=== PATIENT | male | born 1975 | race Caucasian/White ===

== ENCOUNTER 2016-11-06 16:37 | Emergency (ER) | payer BC ==
[2016-11-06 16:44] VITALS: RESP 18
[2016-11-06] MEDS ORDERED: DEXAMETHASONE 4 MG/ML VIAL IVP ONE (17:13)
[2016-11-06] MEDS ORDERED: KETOROLAC 15 MG/1 ML SDV IVP/IM ONE (17:13)
[2016-11-06] MEDS ORDERED: METOCLOPRAMIDE 10 MG/2 ML VIAL IVP ONE (17:13)
--- NOTE | 2016-11-06 17:19 | EDPHY ---
H & P Stated Complaint: vertigo & h/a x 2 wks;had eval by PCP 11/02 dx'd w/migraine, needs work note Time Seen by Provider: 11/06/16 16:58 HPI/ROS: CHIEF COMPLAINT: Headache times 13 days HISTORY OF PRESENT ILLNESS: 41-year-old male with no prior history of chronic headaches at complaining of left-sided headache, generally continuous come for the past 13 days. It was not thunderclap. He describes dizziness, describes gait instability. Saw his primary care provider 4 days ago was prescribed amitriptyline and tizanidine which have not alleviated his symptoms. He has been ingesting ibuprofen with no relief in symptoms. He has positive nausea, positive photophobia. No history of head or neck manipulation or trauma. PRIMARY CARE PROVIDER: Dr Johnathan Chavarria, [facility], [place], [place] REVIEW OF SYSTEMS: A ten point review of systems was performed and is negative with the exception of the items mentioned in the HPI PAST MEDICAL & SURGICAL HISTORY: no history of chronic headaches. 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 Appears uncomfortable 2) HEAD: Normocephalic, atraumatic. No temporal tenderness. 3) HEENT: Pupils equal, round, reactive to light bilaterally. Sclera anicteric. No orbital bruit. 4) NECK: Full range of motion, no meningeal signs. No carotid bruit. No adenopathy. 5) LUNGS: Clear auscultation bilaterally, no wheezes, no rhonchi, no retractions. 6) HEART: Regular rate and rhythm, no murmur, no heave, no gallop. 7) ABDOMEN: No guarding, no rebound, no focal tenderness, negative McBurney's, negative Gómez's, negative Rovsing's, negative peritoneal sign, 8) MUSCULOSKELETAL: Moving all extremities, no focal areas of tenderness, no obvious trauma. No peripheral edema or discoloration. 9) BACK: No CVA tenderness, no midline vertebral tenderness, no fluctuance, no step-off, no obvious trauma, no visual or palpable abnormality. 10) SKIN: No rash, no petechiae. 11) Psychiatric: Patient is oriented X 3, there is no agitation. 12) NEURO: Awake, alert, and oriented to person, place and time. Answers questions appropriately. Cranial nerves 2 through to 12 intact. Abnormal tandem gait. Abnormal heel to zuñiga. DIFFERENTIAL DIAGNOSIS: In no particular order, including but not limited to subarachnoid hemorrhage, migraine headache, tension headache and infectious causes such as meningitis, pharyngitis and sinusitis. The patient understands that this diagnosis is provisional and can never be 100% accurate. Usual and customary warnings were given concerning the clinical impression and all the patient's questions were answered. The patient was instructed to return to the emergency department should her symptoms worsen or return, or develop any new symptoms, otherwise to followup as directed in discharge instructions. This is a partial list of diagnoses considered. These considerations are based on history, physical exam, past history and reassessment. - Personal History Current Tetanus Diphtheria and Acellular Pertussis (TDAP): Yes - Medical/Surgical History Other PMH: chronic migraines. past hx head injury (?concussions) - Social History Smoking Status: Current every day smoker Constitutional: Initial Vital Signs Heart Rate 75 11/06/16 16:38 Respiratory Rate 18 11/06/16 16:38 Blood Pressure 156/89 H 11/06/16 16:38 O2 Sat (%) 97 11/06/16 16:38 O2 Delivery Mode Room Air Allergies/Adverse Reactions: No Known Allergies Allergy (Unverified 11/06/16 17:17) Home Medications: Medication Instructions Recorded Amitriptyline HCl [Elavil 10 mg 10 mg PO TID 11/06/16 (*)] Citalopram [CeleXA] 20 mg PO 11/06/16 Tizandine 11/06/16 Medical Decision Making ED Course/Re-evaluation: 5:20 p.m.: Case discussed with Dr Alejandra in ER. Patient and have 13 days of intractable headache which is new in onset with no prior history of chronic headache and is noted to have cerebellar dysfunction on exam. Plan will be MRI , analgesia re-evaluation. 6:53 p.m.: Re-evaluation, he is feeling improvement after IV Toradol, Reglan, Decadron. I discussed with him his negative MRI. He would like to be discharged, he feels comfortable being discharged. He is able to ambulate without assistance. I recommend he follow up with his primary care provider tomorrow (Monday). In the meantime given usual customary neurologic precautions and instructions. - Data Points Laboratory Results: 11/06/16 17:21 POC Hgb 17.7 gm/dL H gm/dL (13.7-17.5) POC Hct 52 % H % (40-51) POC Sodium 141 mEq/L mEq/L (134-144) POC Potassium 5.5 mEq/L H mEq/L (3.3-5.0) POC Chloride 108 mEq/L mEq/L (97-110) POC BUN 23 mg/dL mg/dL (7-23) POC Creatinine 0.9 mg/dL mg/dL (0.7-1.3) POC Glucose 84 mg/dL mg/dL (70-100) Medications Given: Discontinued Medications Dexamethasone (Decadron Injection) 8 mg IVP EDNOW ONE Stop: 11/06/16 17:14 Last Admin: 11/06/16 17:28 Dose: 8 mg Ketorolac Tromethamine (Toradol) 15 mg IVP/IM EDNOW ONE Stop: 11/06/16 17:14 Last Admin: 11/06/16 17:27 Dose: 15 mg Metoclopramide HCl (Reglan Injection) 10 mg IVP EDNOW ONE Stop: 11/06/16 17:14 Last Admin: 11/06/16 17:28 Dose: 10 mg Point of Care Test Results: 11/06/16 17:21 POC Sodium 141 POC Potassium 5.5 H POC Chloride 108 POC BUN 23 POC Creatinine 0.9 POC Glucose 84 Departure - Departure Disposition: Home, Routine, Self-Care Clinical Impression: Headache Qualifiers: Headache type: other headache syndrome Qualified Code(s): G44.89 - Other headache syndrome Condition: Good Instructions: Migraine Headache (ED) Additional Instructions: PLEASE FOLLOW UP WITH YOUR DOCTOR WITHIN 24 HOURS TO BE RECHECKED. RETURN TO THE ED IMMEDIATELY IF YOUR HEADACHE WORSENS, IF YOU DEVELOP A FEVER, NECK PAIN OR NECK STIFFNESS, OR IF YOU BECOME CONFUSED OR ABNORMALLY DROWSY. Referrals: JOHNATHAN CHAVARRIA [Other] - 1 day without fail
[2016-11-06] MEDS ORDERED: DEXAMETHASONE 4 MG/ML VIAL ONE (17:32)
[2016-11-06 17:36] VITALS: O2SAT 95
[2016-11-06] MEDS ORDERED: GADOBUTROL 10 ML VIAL IVP ONE (17:52)
[2016-11-06 19:06] VITALS: BP 111/91; PULSE 75
== END 2016-11-06 19:06 | disposition home or self-care (01) ==
DX: G44.89 Other headache syndrome (principal); F17.200 Nicotine dependence, unspecified, uncomplicated
CPT/HCPCS: 82947-QW; 96374; A9585; J1100; J1885; J2765